=== PATIENT | female | born 1945 | race Caucasian/White ===

== ENCOUNTER 2018-08-15 10:17 | Outpatient (REF) | payer MEDICARE, SELFPAY ==
[2018-08-15 20:44] LABS: Anion Gap 11.1 mmol/L (3-11); BUN 15 mg/dL (7-18); CO2 30.9 mmol/L (21.0-32.0); CREATININE 0.78 mg/dL (0.55-1.02); Calcium 9.1 mg/dL (8.5-10.1); Chloride 101 mmol/L (98-107); Glucose 89 mg/dL (70-100); Potassium 3.8 mmol/L (3.5-5.1); Sodium 143 mmol/L (136-145)
== END 2018-08-15 10:37 ==
LOC: NCHCN 10:17
PROVIDERS: PCP Physician Assistant; Visit Provider Physician Assistant Medical
DX: I10 Essential (primary) hypertension (principal)
CPT/HCPCS: 80048

== ENCOUNTER 2019-10-14 10:28 | Outpatient (REF) | payer MEDICARE, SELFPAY ==
[2019-10-14 19:26] LABS: ALT 25 U/L (14-59); AST 18 U/L (15-37); Albumin 4.1 g/dL (3.4-5.0); Alkaline Phosphatase 79 U/L (46-116); Anion Gap 7.3 mmol/L (3-11); BUN 14 mg/dL (7-18); Bilirubin, Total 0.4 mg/dL (0.2-1.0); CO2 30.7 mmol/L (21.0-32.0); CREATININE 0.76 mg/dL (0.55-1.02); Calcium 9.5 mg/dL (8.5-10.1); Calculated LDL 86 mg/dL (<100); Chloride 100 mmol/L (98-107); Cholesterol 195 mg/dL (<200); Glucose 98 mg/dL (74-106); HDL Cholesterol 70 mg/dL (40-60); Sodium 138 mmol/L (136-145); Total Protein 7.2 g/dL (6.4-8.2); Triglyceride 198 mg/dL (<150)
== END 2019-10-14 10:48 ==
LOC: NCHCN 10:28
PROVIDERS: PCP Nurse Practitioner Family; Visit Provider Nurse Practitioner Family
DX: I10 Essential (primary) hypertension (principal); E78.5 Hyperlipidemia, unspecified
CPT/HCPCS: 80053; 80061

== ENCOUNTER 2020-10-13 20:15 | Outpatient (REF) | payer MEDICARE, SELFPAY ==
[2020-10-13 20:27] LABS: Anion Gap 7.7 mmol/L (3-11); BUN 19 mg/dL (7-18); CO2 30.3 mmol/L (21.0-32.0); CREATININE 0.8 mg/dL (0.55-1.02); Calcium 9.4 mg/dL (8.5-10.1); Chloride 101 mmol/L (98-107); Glucose 103 mg/dL (74-106); Potassium 4.1 mmol/L (3.5-5.1); Sodium 139 mmol/L (136-145)
== END 2020-10-13 20:16 | disposition home or self-care (01) ==
LOC: NCHCN 20:15
PROVIDERS: PCP Nurse Practitioner Family; Visit Provider Physician Assistant
DX: I10 Essential (primary) hypertension (principal); E78.5 Hyperlipidemia, unspecified
CPT/HCPCS: 80048

== ENCOUNTER 2021-01-29 16:55 | Outpatient (REF) | payer MEDICARE, SELFPAY ==
--- NOTE | 2021-01-29 13:50 | SKI_PTH ---
PATIENT: Sarah Raymundo LOC: [facility] U#:[id number] AGE/SX: 75/F ROOM: RE01/29/[address]: Tyler Escalante : 1945 BED: DIS: 01/29/2021 SPEC #: [id number] RECD: 02/01/21 12:47 STATUS: DEENA RESamm #: [id number] MONICO: 01/29/21 13:[address]: Tyler Escalante DEPT: Surgical Specimen RECD BY: Daniella Acosta ENTERED: 02/01/21 12:49 SP TYPE: LAURE WOO DR: Marie Billy Tissues: 1 - SKIN BIOPSY(SHAVE/PUNCH) Procedures: C3 Immunofluorescent Ab IgA Immunofluorescent Ab IgM Immunofluorescent Ab IgG Immunofluorescent Ab Comments: [id number] (SUBMITTED IN [facility])
== END 2021-01-29 16:56 | disposition home or self-care (01) ==
LOC: LBN 16:55
PROVIDERS: PCP Nurse Practitioner Family; Visit Provider Internal Medicine
DX: L12.9 Pemphigoid, unspecified (principal); L10.9 Pemphigus, unspecified
CPT/HCPCS: 88346; 88305

== ENCOUNTER 2021-07-28 09:07 | Outpatient (REF) | payer MEDICARE, SELFPAY ==
[2021-07-28 20:02] LABS: Anion Gap 10.5 mmol/L (3-11); BUN 15 mg/dL (7-18); CO2 30.5 mmol/L (21.0-32.0); CREATININE 0.9 mg/dL (0.55-1.02); Calcium 9.1 mg/dL (8.5-10.1); Chloride 100 mmol/L (98-107); Glucose 105 mg/dL (74-106); Potassium 3.9 mmol/L (3.5-5.1); Sodium 141 mmol/L (136-145)
== END 2021-07-28 09:08 | disposition home or self-care (01) ==
LOC: NCHCN 09:07
PROVIDERS: PCP Nurse Practitioner Family; Visit Provider Nurse Practitioner Family
DX: I10 Essential (primary) hypertension (principal); R60.0 Localized edema
CPT/HCPCS: 80048

== ENCOUNTER 2022-03-31 18:46 | Outpatient (REF) | payer MEDICARE, SELFPAY ==
[2022-03-31 19:00] LABS: Bilirubin Negative (Negative); Blood Trace-intact (Negative); Clarity Sl Cloudy (Clear); Glucose Negative (Negative); Ketones Negative (Negative); Leukocyte Esterase Large (Negative); Nitrite Positive (Negative); Urobilinogen 0.2 EU/dL (Up TO 0.2); pH 5.5 (5-8)
[2022-03-31 19:02] LABS: WBC >50 HPF (0-5)
[2022-03-31 19:03] LABS: C & S Indicated? Yes
== END 2022-03-31 18:47 | disposition home or self-care (01) ==
LOC: NCHCN 18:46
PROVIDERS: PCP Nurse Practitioner Family; Visit Provider Nurse Practitioner Family
DX: R30.0 Dysuria (principal)
CPT/HCPCS: 87077; 81003; 81015; 87086; 87186

== ENCOUNTER 2022-04-07 11:54 | Outpatient (REF) | payer MEDICARE, SELFPAY ==
[2022-04-07 18:55] LABS: Bilirubin Negative (Negative); Blood Negative (Negative); Clarity Clear (Clear); Glucose Negative (Negative); Ketones Negative (Negative); Leukocyte Esterase Negative (Negative); Nitrite Negative (Negative); Specific Gravity 1.015 (1.005-1.025)
== END 2022-04-07 11:55 | disposition home or self-care (01) ==
LOC: NCHCN 11:54
PROVIDERS: PCP Nurse Practitioner Family; Visit Provider Nurse Practitioner Family
DX: R30.0 Dysuria (principal)
CPT/HCPCS: 81003

== ENCOUNTER 2023-11-06 15:20 | Outpatient (REF) | payer MEDICARE, SELFPAY ==
[2023-11-06 19:52] LABS: Reticulocyte 1.9 % (0.5-2.4)
[2023-11-06 19:58] LABS: Iron 63 ug/dL (50-170); Total Iron Binding Capacity 294 ug/dL (250-450); Transferrin Sat 21 % (15-50)
[2023-11-06 20:11] LABS: Ferritin 255 ng/mL (8-252)
== END 2023-11-06 15:21 | disposition home or self-care (01) ==
LOC: NCHCN 15:20
PROVIDERS: PCP Nurse Practitioner Family; Visit Provider Nurse Practitioner Family
DX: D64.9 Anemia, unspecified (principal)
CPT/HCPCS: 85045; 82728; 83540; 83550

== ENCOUNTER 2023-12-04 12:05 | Outpatient (REF) | payer MEDICARE, SELFPAY ==
[2023-12-04 19:57] LABS: HCT 37.2 % (36.0-46.0); HGB 12.3 g/dL (11.2-15.7); MCHC 33.1 % (32.0-36.0); MCV 94 fL (80-95); Platelet Count 266 10^3/uL (130-400); RBC 3.97 10^6/uL (3.93-5.22); RDW 12.4 % (11.7-14.6); RDW-SD 43.4 fL; WBC 6.31 10^3/uL (4.4-10.8)
[2023-12-04 20:37] LABS: Vitamin B12 328 pg/mL (193-986)
== END 2023-12-04 12:06 | disposition home or self-care (01) ==
LOC: NCHCN 12:05
PROVIDERS: PCP Nurse Practitioner Family; Visit Provider Nurse Practitioner Family
DX: E53.8 Deficiency of other specified B group vitamins (principal)
CPT/HCPCS: 85027; 82607

== ENCOUNTER 2024-07-01 15:59 | Outpatient (REF) | payer MEDICARE, SELFPAY ==
[2024-07-01 18:53] LABS: Bilirubin Negative (Negative); Blood Trace-intact (Negative); Clarity Cloudy (Clear); Glucose Negative (Negative); Ketones Negative (Negative); Leukocyte Esterase Large (Negative); Nitrite Positive (Negative); Specific Gravity 1.015 (1.005-1.025); Urobilinogen 0.2 mg/dL (Up to 0.2); pH 6.5 (5-8)
[2024-07-01 19:05] LABS: Bacteria Packed HPF (Negative); C & S Indicated? Yes; Crystals Negative HPF (Negative); Epithelial Cells Few HPF (Negative); Mucus Negative (Negative); WBC >50 HPF (0-5)
== END 2024-07-01 16:00 | disposition home or self-care (01) ==
LOC: NCHCN 15:59
PROVIDERS: PCP Nurse Practitioner Family; Visit Provider Nurse Practitioner Family
DX: R35.0 Frequency of micturition (principal); B96.29 Other Escherichia coli [E. coli] as the cause of diseases classified elsewhere
CPT/HCPCS: 87077; 81003; 81015; 87086; 87186

== ENCOUNTER 2024-12-03 19:37 | Outpatient (REF) | payer MEDICARE, SELFPAY ==
[2024-12-03 20:32] LABS: ALT 22 U/L (14-59); AST 22 U/L (15-37); Albumin 4.1 g/dL (3.4-5.0); Alkaline Phosphatase 108 U/L (46-116); Anion Gap 11.5 mmol/L (3-11); BUN 21 mg/dL (7-18); Bilirubin, Total 0.6 mg/dL (0.2-1.0); CO2 25.5 mmol/L (21.0-32.0); Calcium 9.5 mg/dL (8.5-10.1); Calculated LDL 74 mg/dL (<100); Chloride 99 mmol/L (98-107); Cholesterol 179 mg/dL (<200); Estimated GFR 74.44 (mL/min/1.73m2); Glucose 98 mg/dL (74-106); HDL Cholesterol 76 mg/dL (>or=50); Potassium 4.2 mmol/L (3.5-5.1); Sodium 136 mmol/L (136-145); Total Protein 7.6 g/dL (6.4-8.2); Triglyceride 146 mg/dL (<150)
== END 2024-12-03 19:38 | disposition home or self-care (01) ==
LOC: NCHCN 19:37
PROVIDERS: PCP Nurse Practitioner Family; Visit Provider Nurse Practitioner Family
DX: I10 Essential (primary) hypertension (principal); E78.5 Hyperlipidemia, unspecified
CPT/HCPCS: 80053; 80061

== ENCOUNTER 2025-02-10 11:39 | Outpatient (REF) | payer MEDICARE, SELFPAY ==
[2025-02-10 19:50] LABS: Abs Immature Grans 0.07 10^3/uL (0.0-0.06); HCT 31.8 % (36.0-46.0); HGB 10.7 g/dL (11.2-15.7); Immature Grans % 0.9 %; MCH 31.1 pg (27.0-33.0); MCHC 33.6 % (32.0-36.0); MCV 92 fL (80-95); MPV 10.3 fL (8.0-11.0); Platelet Count 395 10^3/uL (130-400); RBC 3.44 10^6/uL (3.93-5.22); RDW 12.2 % (11.7-14.6); RDW-SD 41.0 fL; WBC 7.72 10^3/uL (4.4-10.8)
[2025-02-10 20:02] LABS: TSH (W/Ref FT4) 1.43 uIU/mL (0.55-4.78)
[2025-02-10 20:06] LABS: ALT 8 U/L (10-49); AST 21 U/L (<34); Albumin 4.3 g/dL (3.2-5.0); Alkaline Phosphatase 82 U/L (46-116); Anion Gap 12.3 mmol/L (3-11); BUN 31 mg/dL (9-23); Bilirubin, Total 0.60 mg/dL (0.2-1.2); CO2 26.4 mmol/L (20.0-31.0); Calcium 9.2 mg/dL (8.3-10.6); Chloride 97 mmol/L (98-107); Glucose 105 mg/dL (74-106); Potassium 3.5 mmol/L (3.5-5.1); Sodium 136 mmol/L (136-145); Total Protein 7.3 g/dL (5.7-8.2)
== END 2025-02-10 11:40 | disposition home or self-care (01) ==
LOC: NCHCN 11:39
PROVIDERS: PCP Nurse Practitioner Family; Visit Provider Nurse Practitioner Family
DX: R19.7 Diarrhea, unspecified (principal); R60.0 Localized edema
CPT/HCPCS: 80053; 83880; 84443; 85025

== ENCOUNTER 2025-02-19 15:23 | Outpatient (REF) | payer MEDICARE, SELFPAY | END 2025-02-19 15:24 | disposition home or self-care (01) | LOC: NCHCN 15:23 | PROVIDERS: PCP Nurse Practitioner Family; Visit Provider Nurse Practitioner Family | DX: R53.83 Other fatigue (principal) | CPT/HCPCS: 87077; 87086; 87186 ==